=== PATIENT | male | born 1980 | race Caucasian/White ===

== ENCOUNTER 2024-02-24 17:30 | Emergency (ER) | payer BC ==
[~2024-02-24] VITALS: Ht 188 cm; Wt 99.8 kg
[2024-02-24] MEDS ORDERED: KETOROLAC TROMETHAMINE 30 MG INJ ONE (17:46)
[2024-02-24] MEDS ORDERED: ONDANSETRON 4 MG/2 ML VIAL ONE (17:46)
[2024-02-24] MEDS ORDERED: HYDROMORPHONE 1 MG/1 ML DISP.SYRIN ONE ×2 (17:46→19:02)
[2024-02-24 17:47] LABS: BASOPHILS # (AUTO) 0.1 K/UL (0.0-0.2); BASOPHILS % (AUTO) 0.8 % (0.0-2.0); EOSINOPHILS # (AUTO) 0.3 K/uL (0.0-0.7); EOSINOPHILS % (AUTO) 2.8 % (0.0-7.0); HEMATOCRIT 48.3 % (36.7-47.1); HEMOGLOBIN 16.3 g/dL (12.5-16.3); MEAN CORPUSCULAR HGB CONC 34 g/dL (32.5-36.3); MEAN CORPUSCULAR VOLUME 89.3 fL (73.0-96.2); MONOCYTES # (AUTO) 0.7 K/uL (0.1-1.30); MONOCYTES % (AUTO) 5.9 % (0.0-11.0); NEUTROPHILS # (AUTO) 7.4 K/uL (1.8-8.9); NEUTROPHILS % (AUTO) 58.5 % (38.5-71.5); PLATELET COUNT (AUTO) 307 K/uL (152-348); RED BLOOD CELL COUNT(AUTO) 5.41 MIL/uL (4.06-5.63); RED CELL DISTRIBUTION WIDTH 13.2 % (12.1-16.2); WHITE BLOOD COUNT (AUTO) 12.6 K/uL (3.6-10.2)
[2024-02-24 17:48] LABS: *BILIRUBIN,URIN NEGATIVE (NEGATIVE); *BLOOD, URINE 2+ (NEGATIVE); *CLARITY,URINE CLEAR (CLEAR); *COLOR,URINE YELLOW (YELLOW); *KETONES,URINE 1+ (NEGATIVE); *PROTEIN,URINE NEGATIVE (NEGATIVE); *UROBILINOGEN,URINE 0.2 E.U./dl (NORMAL); LEUKOCYTE ESTERASE ,URINE NEGATIVE (NEGATIVE); NITRITE, URINE NEGATIVE (NEGATIVE); PH,URINE 6.5 (5.0-8.0); UGLUCOSE NEGATIVE (NEGATIVE)
[2024-02-24] MEDS: HYDROMORPHONE 1 MG/1 ML DISP.SYRIN IV ONE ×2 (17:51→19:06)
[2024-02-24] MEDS: KETOROLAC TROMETHAMINE 15 MG INJ IVP ONE (17:51)
[2024-02-24] MEDS: ONDANSETRON 4 MG/2 ML VIAL IV ONE (17:51)
[2024-02-24] MEDS: IV NORMAL SALINE 1000 ML BAG IV ONE (17:51)
[2024-02-24 17:55] LABS: CALCIUM 9.5 mg/dL (8.5-10.1); CREATININE 1.2 mg/dL (0.6-1.3); POTASSIUM 3.7 mmol/L (3.5-5.1)
[2024-02-24 18:11] LABS: RBC,URINE 50-80 /HPF (0-3); WBC,URINE 0-3 /HPF (0-3)
[2024-02-24 18:12] LABS: BACTERIA,URINE FEW /HPF (NONE SEEN); SQUAMOUS EPITHELIAL CELL,UR FEW /HPF (NONE SEEN)
[2024-02-24] MEDS ORDERED: ONDA4TAB5 PO (18:25)
[2024-02-24] MEDS ORDERED: KETO10TA2 PO (18:25)
[2024-02-24] MEDS ORDERED: HYDR-3980 PO (18:25)
[2024-02-24 19:32] VITALS: BP 133/80; TEMP 98; O2SAT 98
== END 2024-02-24 19:33 | disposition home or self-care (01) ==
LOC: ER 17:31
DX: N20.1 Calculus of ureter (principal); Z79.899 Other long term (current) drug therapy
CPT/HCPCS: 99285; 96374; 76770; 96375; 96361; 80048; 81001; 85025; 36415; J1885; J2405; J1171 ×2; J7040; A4606; A4663